=== PATIENT | male | born 1995 | race Caucasian/White ===

== ENCOUNTER 2021-08-01 16:24 | Observation (INO) ==
[2021-08-01 16:54] LABS: Hematocrit (blood only) 37.5 % (42-52); Hemoglobin 12.9 g/dL (14.0-18.0); Mean Corpuscular Hemoglobin 30.8 pg (25-34); Mean Corpuscular Hgb Conc 34.4 g/dL (32-36); Mean Corpuscular Volume 89.5 fL (80-100); Mean Platelet Volume 8.8 fL (7.4-10.4); Platelet Count 282 K/uL (130-400); RDW Coefficient of Variation 11.8 % (11.5-14.5); RDW Standard Deviation 38.4 fL (36.4-46.3); Red Blood Count 4.19 M/uL (4.7-6.1); White Blood Count 7.02 K/uL (4.8-10.8)
--- NOTE | 2021-08-01 17:11 | XRay Report ---
XR chest 1V portable CLINICAL HISTORY: Respiratory distress. COMPARISON STUDY: No previous studies for comparison. FINDINGS: Lung volumes are normal. Lungs are clear. There is no pneumothorax or pleural effusion. Car diac size is normal. Mediastinal contours are normal. There is no evidence for pulmonary edema. IMPRESSION: No acute cardiopulmonary findings. ACT 112: Negative or not required by law. Electronically signed by: Jose Rivera M.D. 08/01/2021 5:10 PM
[2021-08-01 17:13] LABS: Basophils # (auto) 0.02 K/uL (0-0.2); Basophils % (auto) 0.3 %; Eosinophils # (auto) 0.17 K/uL (0-0.5); Eosinophils % (auto) 2.4 %; Immature Granulocytes # (auto) 0.01 K/uL (0.00-0.02); Immature Granulocytes % (auto) 0.1 %; Lymphocytes # (auto) 2.16 K/uL (1.2-3.4); Lymphocytes % (auto) 30.8 %; Monocytes # (auto) 0.57 K/uL (0.11-0.59); Monocytes % (auto) 8.1 %; Neutrophils # (auto) 4.09 K/uL (1.4-6.5); Neutrophils % (auto) 58.3 %
[2021-08-01] MEDS ORDERED: KETOROLAC TROMETHAMINE 15 MG/ML VIAL IV ONE (17:15)
[2021-08-01] MEDS ORDERED: SODIUM CHLORIDE 0.9% 1000ML 1,000 ML IV ONE (17:15)
[2021-08-01 17:18] LABS: Alanine Aminotransferase 51 U/L (7-52); Albumin Level 4.8 gm/dl (3.4-5.0); Alkaline Phosphatase 48 U/L (34-104); Anion Gap 10 (3-11); Aspartate Aminotransferase 30 U/L (13-39); BUN Creatinine Ratio 24.3 (10-20); Bilirubin Direct 0.1 mg/dl (0-0.2); Bilirubin,Total 0.7 mg/dl (0.2-1.0); Blood Urea Nitrogen 18 mg/dl (6-23); Calcium 10.1 mg/dl (8.5-10.1); Carbon Dioxide 24 mmol/L (21-32); Chloride 103 mmol/L (98-107); Creatinine Clr Calc Pharmacy 147.1 ml/min; Est GFR (African American) 148.6 ml/min; Est GFR (Non-African American) 128.2 ml/min; Glucose 92 mg/dl (70-99(Fasting)); Potassium 3.7 mmol/L (3.5-5.1); Sodium 137 mmol/L (136-145); Total Protein 7.7 gm/dl (6.0-8.3)
--- NOTE | 2021-08-01 17:20 | Emergency Department Note ---
Impression & Plan Pulmonary embolism, Chest pain ED Provider Note NAME: MAGDIEL GARCIA AGE: 26 SEX: M : 1995 ARRIVES VIA: Walk-In INFORMANT: Patient ED PROVIDER(S): Denton Mayers DO CHIEF COMPLAINT: chest pain HPI: Patient is a 26-year-old who presents the ER status post trip to [facility]. Patient presents for intermittent chest pain. This has been present daily and she initially thought it was secondary to anxiety. She called [facility] today and they referred her in as they are concerned for possible PE. She does take estrogen and with a recent car trip. She denies any history of cancer, hemoptysis, previous clotting disorders or smoking. Patient is a transgender male to female. Patient denies diabetes, hypertension, hyperlipidemia, CAD, history of sudden at a young age, and smoking. Pain currently is a 1 out of 10. It is never present with waking up in the morning or when going to bed. Is present throughout the remainder of the day and mainly constant but does wax and wane slightly. Currently a 1 out of 10 and dull ache midsternal. No radiation. No shortness of breath. No arm or jaw pain. No calf swelling ROS: See above HPI for pertinent positives & negatives. A total of 10 systems reviewed and were otherwise negative. PAST MEDICAL HISTORY:See Below PAST SURGICAL HISTORY:See Below FAMILY HISTORY:See Below SOCIAL HISTORY:See Below HOME MEDICATIONS:See Below ALLERGIES:See Below VITALS:See Below PHYSICAL EXAMINATION: GENERAL: Sitting up in bed, alert, well appearing, well nourished, no distress, non-toxic EYE EXAM: normal conjunctiva. OROPHARYNX: mucous membranes are moist LUNGS: Clear to auscultation. Normal chest wall mechanics HEART: Tachycardic, S1 normal and S2 normal ABDOMEN: abdomen soft, non-tender, normo-active bowel sounds, no masses, no rebound or guarding. UPPER EXTREMITIES: upper extremities are grossly normal. LOWER EXTREMITIES: No pitting edema. Calves are equal bilateral NEURO EXAM: Normal sensorium, cranial nerves II-XII grossly intact, normal speech, no gross weakness of arms, no gross weakness of legs MEDICAL DECISION MAKING: Patient is a 26-year-old male transitioning to female on estrogen who recently just got back from a 3-hour car trip on Wednesday. Presents to the ER for intermittent chest pain. No calf pain. Not exertional. IV was established blood work is obtained. Labs show no significant leukocytosis or anemia. D- dimer was elevated at 520. BMP with LFTs bilirubin and troponin was negative. EKG was nondiagnostic but did show a sinus tachycardia. Patient was persistently tachycardic from the 110s to the 120s. Ultrasound/duplex of lower extremities was negative. Patient even after a liter of IV fluids still persistently tachycardic with a heart rate of 120. Patient was placed on heparin drip and bolus. Denies any brain bleeds, recent surgery, coughing up blood, vomiting blood, urinating blood or dark/black stools. With the pe rsistent tachycardia I felt observation was warranted especially with taking estrogen and currently at school with no close follow-up. Discussed with the hospitalist Dr. Love for further evaluation Triage Nursing notes reviewed. Limited review of prior medical records performed Vital Signs: reviewed and remarkable for HTN Differential diagnosis: Differential diagnoses includes but is not limited to acute coronary syndrome, myocardial infarction, pericarditis, pulmonary embolus, aortic dissection, pneumonia, pneumothorax, musculoskeletal, shingles, esophageal. ER treatment provided: See below Diagnostics interpreted by me: ECG: Sinus tachycardia rate of 109 Normal axis No PVCs QTC 465 Incomplete right bundle Cardiac Monitoring: An order was placed for continuous cardiac monitoring. The monitor shows a rate of 98 with sinus rhythm. Laboratory studies: As stated above and show below. Imaging studies: CT angio shows a subsegmental PE Consultation(s): Discussed with Scar Montoya for further evaluation of PEs with tachycardia Procedures: none Critical Care: I have personally spent 32 minutes of critical care time in the direct management of this patient. This includes bedside care, interpretation of diagnostic studies, and testing, discussion with consultants, patient, and family members, and other required patient management activities. This 32 minutes is in excess of all separately billable procedures. Past Med/Surg History Social History Smoking Status: Never smoker Preferred Language: Monegasque Feels Safe at Home: Yes Allergies Allergies Allergy/AdvReac Type Severity Reaction Status Date / Time No Known Allergies Allergy Unverified 08/01/21 17:43 Home Meds Home Medications Medication Instructions Recorded Confirmed aspirin 81 mg tablet,delayed 81 mg PO QAM 08/01/21 08/01/21 release bicalutamide 50 mg tablet 50 mg PO QAM 08/01/21 08/01/21 estradiol 0.1 mg/24 hr semiweekly 1 patch TRANSDERMAL 2XWK 08/01/21 08/01/21 transdermal patch estradiol 2 mg tablet 2 mg PO TID 08/01/21 08/01/21 Results & Data (ED) Vital Signs Vital Signs - 24 hr 08/01/21 16:30 08/01/21 18:26 Temperature 36.8 C Temperature Source Temporal Artery Scan Pulse Rate 99 H Pulse Rate [Apical] 116 H Respiratory Rate 18 18 Blood Pressure 143/86 H Blood Pressure [Right Arm] 141/84 H Blood Pressure Mean 105 Blood Pressure Mean [Right Arm] 103 Pulse Oximetry 97 97 Oxygen Delivery Method Room Air Room Air Sepsis Recent Fever Within 48 Hours No Sepsis New/Unexplained Change in Mental Status No Sepsis Action Taken by Nursing No Action Required Laboratory Data Result diagrams: 08/01/21 16:43 08/01/21 16:43 Lab Results 08/01/21 08/01/21 08/01/21 Range/Units 16:43 16:43 16:43 WBC 7.02 (4.8-10.8) K/uL RBC 4.19 L (4.7-6.1) M/uL Hgb 12.9 L (14.0-18.0) g/dL Hct 37.5 L (42-52) % MCV 89.5 (80-100) fL MCH 30.8 (25-34) pg MCHC 34.4 (32-36) g/dL RDW Std Deviation 38.4 (36.4-46.3) fL RDW Coeff of Nicanor 11.8 (11.5-14.5) % Plt Count 282 (130-400) K/uL MPV 8.8 (7.4-10.4) fL Immature Gran % (Auto) 0.1 % Neut % (Auto) 58.3 % Lymph % (Auto) 30.8 % Clinch % (Auto) 8.1 % Eos % (Auto) 2.4 % Baso % (Auto) 0.3 % Neut # (Auto) 4.09 (1.4-6.5) K/uL Lymph # (Auto) 2.16 (1.2-3.4) K/uL Clinch # (Auto) 0.57 (0.11-0.59) K/uL Eos # (Auto) 0.17 (0-0.5) K/uL Baso # (Auto) 0.02 (0-0.2) K/uL Immature Gran # (Auto) 0.01 (0.00-0.02) K/uL D-Dimer 520 H* (0-500) ug/L FEU Sodium 137 (136-145) mmol/L Potassium 3.7 (3.5-5.1) mmol/L Chloride 103 (98-107) mmol/L Carbon Dioxide 24 (21-32) mmol/L Anion Gap 10 (3-11) BUN 18 (6-23) mg/dl Creatinine 0.74 (0.6-1.4) mg/dl Est Cr Clr Drug Dosing 147.1 ml/min Est GFR ( Amer) 148.6 ml/min Est GFR (Non-Af Amer) 128.2 ml/min BUN/Creatinine Ratio 24.3 H (10-20) Glucose 92 (70-99(Fasting)) mg/dl Calcium 10.1 (8.5-10.1) mg/dl Total Bilirubin 0.7 (0.2-1.0) mg/dl Direct Bilirubin 0.1 (0-0.2) mg/dl AST 30 (13-39) U/L ALT 51 (7-52) U/L Alkaline Phosphatase 48 (34-104) U/L Troponin I High Sens < 2.3 (0-20) pg/ml Total Protein 7.7 (6.0-8.3) gm/dl Albumin 4.8 (3.4-5.0) gm/dl 08/01/21 Range/Units 16:43 WBC (4.8-10.8) K/uL RBC (4.7-6.1) M/uL Hgb (14.0-18.0) g/dL Hct (42-52) % MCV (80-100) fL MCH (25-34) pg MCHC (32-36) g/dL RDW Std Deviation (36.4-46.3) fL RDW Coeff of Nicanor (11.5-14.5) % Plt Count (130-400) K/uL MPV (7.4-10.4) fL Immature Gran % (Auto) % Neut % (Auto) % Lymph % (Auto) % Clinch % (Auto) % Eos % (Auto) % Baso % (Auto) % Neut # (Auto) (1.4-6.5) K/uL Lymph # (Auto) (1.2-3.4) K/uL Clinch # (Auto) (0.11-0.59) K/uL Eos # (Auto) (0-0.5) K/uL Baso # (Auto) (0-0.2) K/uL Immature Gran # (Auto) (0.00-0.02) K/uL D-Dimer (0-500) ug/L FEU Sodium (136-145) mmol/L Potassium (3.5-5.1) mmol/L Chloride (98-107) mmol/L Carbon Dioxide (21-32) mmol/L Anion Gap (3-11) BUN (6-23) mg/dl Creatinine (0.6-1.4) mg/dl Est Cr Clr Drug Dosing ml/min Est GFR ( Amer) ml/min Est GFR (Non-Af Amer) ml/min BUN/Creatinine Ratio (10-20) Glucose (70-99(Fasting)) mg/dl Calcium (8.5-10.1) mg/dl Total Bilirubin Cancelled (0.2-1.0) mg/dl Direct Bilirubin Cancelled (0-0.2) mg/dl AST Cancelled (13-39) U/L ALT Cancelled (7-52) U/L Alkaline Phosphatase Cancelled (34-104) U/L Troponin I High Sens (0-20) pg/ml Total Protein Cancelled (6.0-8.3) gm/dl Albumin Cancelled (3.4-5.0) gm/dl Administered Medications Discontinued Medications Sodium Chloride (Nss 1000ml) 1,000 mls @ 999 mls/hr IV .Q1H1M ONE Stop: 08/01/21 18:15 Last Admin: 08/01/21 18:24 Dose: 999 mls/hr Documented by: [id number] Ioversol (Optiray 320 125ml) 117 ml IV ONCE ONE Stop: 08/01/21 18:07 Last Admin: 08/01/21 18:06 Dose: 117 ml Documented by: [id number] Ketorolac Tromethamine (Ketorolac Tromethamine 15 Mg/Ml Vial) 15 mg IV NOW ONE Stop: 08/01/21 17:16 Last Admin: 08/01/21 18:24 Dose: 15 mg Documented by: [id number] Imaging Data Radiologist's Impression: Chest X-Ray 08/01/21 16:33 XR chest 1V portable CLINICAL HISTORY: Respiratory distress. COMPARISON STUDY: No previous studies for comparison. FINDINGS: Lung volumes are normal. Lungs are clear. There is no pneumothorax or pleural effusion. Cardiac size is normal. Mediastinal contours are normal. There is no evidence for pulmonary edema. IMPRESSION: No acute cardiopulmonary findings. ACT 112: Negative or not required by law. Electronically signed by: Jose Rivera M.D. 08/01/2021 5:10 PM Chest CTA 08/01/21 17:39 CT ANGIOGRAPHY OF THE CHEST, PULMONARY EMBOLUS PROTOCOL CLINICAL HISTORY: Chest pain. Elevated d-dimer. Recent travel COMPARISON STUDY: Chest radiograph performed earlier today. TECHNIQUE: Following IV administration of 117 mL of Optiray, helical axial images of the chest were obtained utilizing the pulmonary embolus protocol. Maximal intensity projections and sagittal and coronal reformats were viewed on an independent 3D workstation. IV contrast was administered without complication. Automated exposure control was utilized for the study. A dose lowering technique was utilized adhering to the principles of ALARA. CT DOSE: 475.21 mGy.cm FINDINGS: There is a small subsegmental pulmonary embolus within the posterior basal segment of the right lower lobe shown on axial image 83 of 318. No additional pulmonary emboli are identified. There is no thoracic aortic dissection. Size of the heart is normal. No enlarged thoracic lymph nodes are present. There is no pulmonary infarct. Lungs are clear. No pneumothorax or pleural effusion is present. Visualized portions of the bony thorax and upper abdomen are unremarkable. There is bilateral gynecomastia. IMPRESSION: Small subsegmental pulmonary embolus within the posterior basal segment of the right lower lobe. ACT 112: Negative or not required by law. Electronically signed by: Jose Rivera M.D. 08/01/2021 6:22 PM Venous Doppler Study 08/01/21 18:26 BILATERAL LOWER EXTREMITY VENOUS DOPPLER CLINICAL HISTORY: Pulmonary embolus. COMPARISON STUDY: No previous studies for comparison. TECHNIQUE: Sonography of the deep venous system of the bilateral lower extremities was performed. Compression and augmentation were evaluated. FINDINGS: The bilateral common femoral, superficial femoral and popliteal veins were compressible. Augmentation was normal. Flow was shown within the deep calf vessels. IMPRESSION: No evidence of deep venous thrombus within the bilateral lower extremities. ACT 112: Negative or not required by law. Electronically signed by: Jose Rivera M.D. 08/01/2021 7:08 PM Discharge Plan Visit Data Chief Complaint: Referred by Doctor Stated Complaint: [place], SENT BY EMERGENCY HOTLINE ED Provider: Denton Mayers Discharge Problem: Pulmonary embolism, Chest pain Forms Stand Alone Forms: My [facility] InboundWriter Prescriptions Prescriptions: No Action bicalutamide 50 mg tablet 50 mg PO QAM RF: 0 estradiol 0.1 mg/24 hr patch semiweekly 1 patch transdermal 2XWK RF: 0 aspirin 81 mg tablet,delayed release (DR/EC) 81 mg PO QAM RF: 0 estradiol 2 mg tablet 2 mg PO TID RF: 0 Referrals Referrals: PCP,NO [Physician] - Discharge Problem: Pulmonary embolism Qualifiers: Pulmonary embolism type: unspecified Chronicity: unspecified Acute cor pulmonale presence: unspecified Qualified Code(s): I26.99 - Other pulmonary embolism without acute cor pulmonale Chest pain Qualifiers: Chest pain type: unspecified Qualified Code(s): R07.9 - Chest pain, unspecified
[2021-08-01 17:22] LABS: Troponin I High Sensitivity < 2.3 pg/ml (0-20)
[2021-08-01 17:37] LABS: D Dimer 520 ug/L FEU (0-500)
[2021-08-01] MEDS ORDERED: OPTIRAY 320 125ml IV ONE (18:06)
--- NOTE | 2021-08-01 18:25 | CT Scan Report ---
CT ANGIOGRAPHY OF THE CHEST, PULMONARY EMBOLUS PROTOCOL CLINICAL HISTORY: Chest pain. Elevated d-dimer. Recent travel COMPARISON STUDY: Chest radiograph performed earlier today. TECHNIQUE: Following IV administration of 117 mL of Optiray, helical axial images of the chest were o btained utilizing the pulmonary embolus protocol. Maximal intensity projections and sagittal and cor onal reformats were viewed on an independent 3D workstation. IV contrast was administered without co mplication. Automated exposure control was utilized for the study. A dose lowering technique was ut ilized adhering to the principles of ALARA. CT DOSE: 475.21 mGy.cm FINDINGS: There is a small subsegmental pulmonary embolus within the posterior basal segment of the right lower lobe shown on axial image 83 of 318. No additional pulmonary emboli are identified. There is no thoracic aortic dissection. Size of the heart is normal. No enlarged thoracic lymph nodes are present. There is no pulmonary infarct. Lungs are clear. No pneumothorax or pleural effusion is prese nt. Visualized portions of the bony thorax and upper abdomen are unremarkable. There is bilateral bottom worker ecomastia. IMPRESSION: Small subsegmental pulmonary embolus within the posterior basal segment of the right low er lobe. ACT 112: Negative or not required by law. Electronically signed by: Jose Rivera M.D. 08/01/2021 6:22 PM
--- NOTE | 2021-08-01 19:10 | Ultrasound Report ---
BILATERAL LOWER EXTREMITY VENOUS DOPPLER CLINICAL HISTORY: Pulmonary embolus. COMPARISON STUDY: No previous studies for comparison. TECHNIQUE: Sonography of the deep venous system of the bilateral lower extremities was performed. Co mpression and augmentation were evaluated. FINDINGS: The bilateral common femoral, superficial femoral and popliteal veins were compressible. A ugmentation was normal. Flow was shown within the deep calf vessels. IMPRESSION: No evidence of deep venous thrombus within the bilateral lower extremities. ACT 112: Negative or not required by law. Electronically signed by: Jose Rivera M.D. 08/01/2021 7:08 PM
[2021-08-01] MEDS ORDERED: Heparin IV Adult Wt-Based Standard WITH Bolus Protocol IV STA (19:17)
[2021-08-01] MEDS ORDERED: SODIUM CHLORIDE 0.9% 500 ML IV ONE (19:17)
[2021-08-01] MEDS ORDERED: HEPARIN SOD (PORCINE) 1000 UNIT/ML IV ONE (19:32)
[2021-08-01] MEDS ORDERED: HEPARIN SODIUM/DEXTROSE 25,000 UNITS/500 ML BAG IV SCH (19:45)
--- NOTE | 2021-08-01 19:48 | History & Physical Report ---
Date of Service August 01, 2021 Assessment & Plan (1) Pulmonary embolism: Plan: - small subsegmental PE after recent travel from [facility], on hormone therapy, these likely caused the PE. will also order hypercoagulability work up to r/o additional predisposing factors. - heparin drip with bolus started in ED, will continue. suspect she will be dischaged tomorrow pending no acute events overnight, can look into options for short term anticoagulation/consider switching estrogen delivery route if felt unsafe to continue on oral estrogen therapy. - has been persistently tachycardic in ED despite IVF, but initial trop < 2.3, no cardiomegaly or pericardial effusion, no suspicion for tachycardia induced cardiomyopathy at this point. - continue to monitor HR on monitor overnight. (2) Tachycardia: (3) Nzad-ey-vaoknd transgender person: Plan: - on estradiol patch 2x/week (Wednesday and ) po estradiol 2mg TID, casodex 50mg daily. treatment is managed by Drs. [facility], based in [place]. - preferred name is Leelee, pronouns she/her/hers. Plan: - med/tele for observation overnight. - SCDs, on heparin drip. - full code. History of Present Illness Chief Complaint: chest pain Primary Care Provider: [facility] Leelee is a 26-year-old otherwise healthy female (transitioning M to F) currently on estrogen therapy who presents today with onset of chest pain. She returned home from a trip from [facility] on Wednesday, and noticed later that evening that she had some mild central chest pain. She originally thought this was due to anxiety, or perhaps sleeping poorly. However,over the rest of the week, she has continued to experience episodic central chest pain. at its worst, is a 3/10 and does not laqst for very long. Onset both with and without activity. She called [facility] today, they felt given her recent travel and estrogen therapy, she should present to the emergency department for further evaluation. Chest pain does not radiate anywhere, she is not having any difficulty breathing, no shortness of breath, or palpitations. She has never had a blood clot, denies any family history of such. Reports a family history of heart disease, but no known clotting disorders or other blood disorder. In ED, she was tachycardic HR 110-120s, hypertensive with SBP 140s, VS stable and otherwise wnl. Labs largely unremarkable, d dimer 520, chest CTA with small subsegemental PE within the posterior basal segment of the right lower lobe. hsTroponin < 2.3. CXR unremarkable, b/l dopplers without evidence of DVT. Allergies Allergy/AdvReac Type Severity Reaction Status Date / Time No Known Allergies Allergy Unverified 08/01/21 17:43 Home Medications Medication Instructions Recorded Confirmed Type aspirin 81 mg tablet,delayed 81 mg PO QAM 08/01/21 08/01/21 History release bicalutamide 50 mg tablet 50 mg PO QAM 08/01/21 08/01/21 History estradiol 0.1 mg/24 hr semiweekly 1 patch TRANSDERMAL 2XWK 08/01/21 08/01/21 History transdermal patch estradiol 2 mg tablet 2 mg PO TID 08/01/21 08/01/21 History Eliquis 5 mg tablet (apixaban) 5 mg PO BID 30 Days #67 tab NS 08/02/21 Rx Past Med/Surg History Medical History (Updated 08/01/21 @ 21:36 by Avril Zarco PA-C) Pulmonary embolism Family History (Updated 08/01/21 @ 21:00 by Avril Zarco PA-C) Other Heart disease Denies family history of Sudden Deep vein thrombosis Clotting disorder Pulmonary embolism Social History Smoking Status: Never smoker Second Hand Exposure: No; Do You Dip or Chew Tobacco: No; Tobacco Cessation Education Requested by Patient: No Hx Alcohol Use: Yes Alcohol type: other Hx Substance Use: No Preferred Language: Citizen Of [place] Communication Ability: Effective Valve Mechanic Required: No Beliefs That Will Affect Care: None Current Living Situation: Other Current Living Situation Comment: had 2 roommates Other Information That Helps Us Care for You: No Feels Safe at Home: Yes Safety Concerns: Feels Safe At This Time Assistive Devices: None Review of Systems Review of Systems: Constitutional: No fever/chills, weakness, fatigue, myalgias, anorexia, night sweats Eyes: No diplopia, no worsening or blurred vision ENT: normal hearing, no trouble swallowing Respiratory: No cough, sputum, dyspnea at rest or on exertion Cardiovascular: central chest pain without tightness or palpitations Abdomen: No pain, nausea, vomiting, diarrhea or constipation : Denies dysuria, hematuria, increased urgency/frequency, urinary retention Musculoskeletal: No joint pain, calf pain, swelling Neurologic: No weakness, numbness/tingling, or balance problems Psychiatric: No anxiety or depression Skin: No rash or itch Physical Exam Physical Exam: General: awake, alert, no apparent distress Head: Normocephalic, atraumatic ENT: PERRL, EOMI, no pharyngeal exudate, mucous membranes moist Chest: Clear to auscultation, on room air, no adventitious breath sounds Cardiac: Regular rate and rhythm, no murmur, no JVD, normal peripheral pulses, good capillary refill Abdominal: NABS x 4 quadrants, soft, nontender to palpation, no rebound, gu arding or tenderness Extremities: Normal inspection, no peripheral edema or erythema, calfs nontender to palpation Psych: Normal mood and affect Neuro: AAO x 3, strength intact bilaterally and rated 5/5, no motor deficits, speech is clear, no peripheral sensory deficits Skin: no rash or erythema Results & Data Results & Data ([facility]) Vital Signs (Past 12 Hours) Vital Signs Temp Pulse Pulse Resp BP BP Pulse Ox 08/01/21 18:26 116 H 18 141/84 H 97 08/01/21 16:30 36.8 C 99 H 18 143/86 H 97 Laboratory Results Abnormal lab results 08/01/21 08/01/21 08/01/21 Range/Units 16:43 16:43 16:43 RBC 4.19 L (4.7-6.1) M/uL Hgb 12.9 L (14.0-18.0) g/dL Hct 37.5 L (42-52) % D-Dimer 520 H* (0-500) ug/L FEU BUN/Creatinine Ratio 24.3 H (10-20) Diagnostic Findings Chest X-Ray 08/01/21 16:33 XR chest 1V portable CLINICAL HISTORY: Respiratory distress. COMPARISON STUDY: No previous studies for comparison. FINDINGS: Lung volumes are normal. Lungs are clear. There is no pneumothorax or pleural effusion. Cardiac size is normal. Mediastinal contours are normal. There is no evidence for pulmonary edema. IMPRESSION: No acute cardiopulmonary findings. ACT 112: Negative or not required by law. Electronically signed by: Jose Rivera M.D. 08/01/2021 5:10 PM Chest CTA 08/01/21 17:39 CT ANGIOGRAPHY OF THE CHEST, PULMONARY EMBOLUS PROTOCOL CLINICAL HISTORY: Chest pain. Elevated d-dimer. Recent travel COMPARISON STUDY: Chest radiograph performed earlier today. TECHNIQUE: Following IV administration of 117 mL of Optiray, helical axial images of the chest were obtained utilizing the pulmonary embolus protocol. Maximal intensity projections and sagittal and coronal reformats were viewed on an independent 3D workstation. IV contrast was administered without complication. Automated exposure control was utilized for the study. A dose lowering technique was utilized adhering to the principles of ALARA. CT DOSE: 475.21 mGy.cm FINDINGS: There is a small subsegmental pulmonary embolus within the posterior basal segment of the right lower lobe shown on axial image 83 of 318. No additional pulmonary emboli are identified. There is no thoracic aortic dissection. Size of the heart is normal. No enlarged thoracic lymph nodes are present. There is no pulmonary infarct. Lungs are clear. No pneumothorax or pleural effusion is present. Visualized portions of the bony thorax and upper abdomen are unremarkable. There is bilateral gynecomastia. IMPRESSION: Small subsegmental pulmonary embolus within the posterior basal segment of the right lower lobe. ACT 112: Negative or not required by law. Electronically signed by: Jose Rivera M.D. 08/01/2021 6:22 PM Venous Doppler Study 08/01/21 18:26 BILATERAL LOWER EXTREMITY VENOUS DOPPLER CLINICAL HISTORY: Pulmonary embolus. COMPARISON STUDY: No previous studies for comparison. TECHNIQUE: Sonography of the deep venous system of the bilateral lower extremities was performed. Compression and augmentation were evaluated. FINDINGS: The bilateral common femoral, superficial femoral and popliteal veins were compressible. Augmentation was normal. Flow was shown within the deep calf vessels. IMPRESSION: No evidence of deep venous thrombus within the bilateral lower extremities. ACT 112: Negative or not required by law. Electronically signed by: Jose Rivera M.D. 08/01/2021 7:08 PM ECG Additional Comments: Sinus tachycardia Possible Left atrial enlargement Incomplete right bundle branch block Borderline ECG No previous ECGs available. Code Status & VTE Plan Code Status Full Code. VTE Prophylaxis Plan VTE Prophylaxis will be ordered: Yes Supervising Physician Co-Signing Physician Notes Attending addendum: I have physically seen this patient, have supervised the CHACORTA's activities, and agree with the H&P unless as otherwise noted. Assessment and Plan: Pulmonary embolism- Small subsegmental PE in the posterior basal segment right lower lobe Bilateral lower extremity venous Dopplers negative for DVT Continue heparin IV begun by the ED Likely etiology secondary to hormone therapy Transition to oral anticoagulation tomorrow Order hypercoagulable work-up Male to female transgender transition- Hormone therapy per Dr. [facility] in [place] Remaining orders and notations as noted PG Care Time/CCT Total # of Minutes Spent Total Time Spent with Patient: Total time spent is greater than 50% in coordination of care (as documented) at patient's floor/unit and/or counseling patient: Coding Level of Care Code INT OBSERVATION CARE 50M LVL 2 Diagnoses Pulmonary embolism I26.99 Acute cor pulmonale presence: unspecified Chronicity: unspecified Pulmonary embolism type: unspecified Inme-yg-ippxni transgender person Z78.9 Tachycardia R00.0 (1) Pulmonary embolism Acute cor pulmonale presence: unspecified Chronicity: unspecified Pulmonary embolism type: unspecified Qualified Code(s): I26.99 - Other pulmonary embolism without acute cor pulmonale
[2021-08-01] MEDS ORDERED: POLYETHYLENE (MIRALAX) 17 GM PACK PO PRN (22:40)
[2021-08-01] MEDS ORDERED: ACETAMINOPHEN 325 MG TAB PO PRN (22:40)
[2021-08-01] MEDS ORDERED: ONDANSETRON INJ 2 MG/ML 2 ML VIAL IV PRN (22:40)
[2021-08-02] MEDS: estradioL 1 MG TAB PO SCH ×3 (00:51→14:21)
[2021-08-02 05:19] LABS: Partial Thromboplastin Ratio 2.2
[2021-08-02 05:45] LABS: Partial Thromboplastin Time 59.5 Seconds (21.0-31.0)
--- NOTE | 2021-08-02 07:16 | Discharge Summary ---
Date of Service August 02, 2021 Admission HPI Per Admitting Provider Leelee is a 26-year-old otherwise healthy female (transitioning M to F) currently on estrogen therapy who presents today with onset of chest pain. She returned home from a trip from [facility] on Wednesday, and noticed later that evening that she had some mild central chest pain. She originally thought this was due to anxiety, or perhaps sleeping poorly. However,over the rest of the week, she has continued to experience episodic central chest pain. at its worst, is a 3/10 and does not laqst for very long. Onset both with and without activity. She called [facility] today, they felt given her recent travel and estrogen therapy, she should present to the emergency department for further evaluation. Chest pain does not radiate anywhere, she is not having any difficulty breathing, no shortness of breath, or palpitations. She has never had a blood clot, denies any family history of such. Reports a family history of heart disease, but no known clotting disorders or other blood disorder. In ED, she was tachycardic HR 110-120s, hypertensive with SBP 140s, VS stable and otherwise wnl. Labs largely unremarkable, d dimer 520, chest CTA with small subsegemental PE within the posterior basal segment of the right lower lobe. hsTroponin < 2.3. CXR unremarkable, b/l dopplers without evidence of DVT. Admission Exam Per Admitting Provider General: awake, alert, no apparent distress Head: Normocephalic, atraumatic ENT: PERRL, EOMI, no pharyngeal exudate, mucous membranes moist Chest: Clear to auscultation, on room air, no adventitious breath sounds Cardiac: Regular rate and rhythm, no murmur, no JVD, normal peripheral pulses, good capillary refill Abdominal: NABS x 4 quadrants, soft, nontender to palpation, no rebound, guarding or tenderness Extremities: Normal inspection, no peripheral edema or erythema, calfs nontender to palpation Psych: Normal mood and affect Neuro: AAO x 3, strength intact bilaterally and rated 5/5, no motor deficits, speech is clear, no peripheral sensory deficits Skin: no rash or erythema Principal Diagnosis subsegmental pulmonary embolism Discharge Exam General: Grossly A&O. NAD. Cooperative. HEENT: Atraumatic, normocephalic. EOMI Pulm: CTAB. -wheezes, -rales, -rhonchi. Symmetrical chest rise. No respiratory distress. Cardiac: RRR, -mrg. No LE edema. Abdominal: Nontender, nondistended, soft. Discharge Data Allergies Allergy/AdvReac Type Severity Reaction Status Date / Time No Known Allergies Allergy Unverified 08/01/21 17:43 Consultations 08/01/21 19:17 ED Decision to Admit Stat Ordered Studies Cardiac Enzymes 08/01/21 08/01/21 Range/Units 16:43 16:43 AST 30 Cancelled (13-39) U/L Troponin I High Sens < 2.3 (0-20) pg/ml Coagulation 08/02/21 Range/Units 04:26 APTT 59.5 H* (21.0-31.0) Seconds CBC 08/01/21 08/02/21 Range/Units 16:43 08:17 WBC 7.02 7.67 (4.8-10.8) K/uL RBC 4.19 L 4.01 L (4.7-6.1) M/uL Hgb 12.9 L 12.6 L (14.0-18.0) g/dL Hct 37.5 L 36.4 L (42-52) % Plt Count 282 288 (130-400) K/uL Neut # (Auto) 4.09 (1.4-6.5) K/uL Lymph # (Auto) 2.16 (1.2-3.4) K/uL King # (Auto) 0.57 (0.11-0.59) K/uL Eos # (Auto) 0.17 (0-0.5) K/uL Baso # (Auto) 0.02 (0-0.2) K/uL Comprehensive Metabolic Panel 08/01/21 08/01/21 08/02/21 Range/Units 16:43 16:43 08:17 Sodium 137 138 (136-145) mmol/L Potassium 3.7 3.7 (3.5-5.1) mmol/L Chloride 103 104 (98-107) mmol/L Carbon Dioxide 24 28 (21-32) mmol/L BUN 18 10 (6-23) mg/dl Creatinine 0.74 0.68 (0.6-1.4) mg/dl Glucose 92 94 (70-99(Fasting)) mg/dl Calcium 10.1 9.7 (8.5-10.1) mg/dl Direct Bilirubin 0.1 Cancelled (0-0.2) mg/dl AST 30 Cancelled (13-39) U/L ALT 51 Cancelled (7-52) U/L Alkaline Phosphatase 48 Cancelled (34-104) U/L Total Protein 7.7 Cancelled (6.0-8.3) gm/dl Albumin 4.8 Cancelled (3.4-5.0) gm/dl Intake and Output 08/01/21 08/02/21 08/02/21 22:59 06:59 14:59 Intake Total 1500 / 1900 400 / 1900 228.75 / 228.75 Balance 1500 / 1900 400 / 1900 228.75 / 228.75 Intake: IV 1500 / 1500 228.75 / 228.75 Heparin Sodium/Dextrose 25,000 228.75 / 228.75 units In 500 ml @ 1,250 UNITS/ HR 25 mls/hr IV .Q20H DEBBY Rx#: [id number] Sodium Chloride 0.9% 1000ML 1, 1000 / 1000 000 ml @ 999 mls/hr IV .Q1H1M ONE Rx#:[id number] Sodium Chloride 0.9% 500 ml @ 500 / 500 999 mls/hr IV .Q31M ONE Rx#: [id number] Oral 400 / 400 Other: # Unmeasured Voids 4 Weight 78.1 kg 76.8 kg Weight Measurement Method Chair Scale Standing Scale Chest X-Ray 08/01/21 16:33 XR chest 1V portable CLINICAL HISTORY: Respiratory distress. COMPARISON STUDY: No previous studies for comparison. FINDINGS: Lung volumes are normal. Lungs are clear. There is no pneumothorax or pleural effusion. Cardiac size is normal. Mediastinal contours are normal. There is no evidence for pulmonary edema. IMPRESSION: No acute cardiopulmonary findings. ACT 112: Negative or not required by law. Electronically signed by: Jose Rivera M.D. 08/01/2021 5:10 PM Chest CTA 08/01/21 17:39 CT ANGIOGRAPHY OF THE CHEST, PULMONARY EMBOLUS PROTOCOL CLINICAL HISTORY: Chest pain. Elevated d-dimer. Recent travel COMPARISON STUDY: Chest radiograph performed earlier today. TECHNIQUE: Following IV administration of 117 mL of Optiray, helical axial images of the chest were obtained utilizing the pulmonary embolus protocol. Maximal intensity projections and sagittal and coronal reformats were viewed on an independent 3D workstation. IV contrast was administered without complication. Automated exposure control was utilized for the study. A dose lowering technique was utilized adhering to the principles of ALARA. CT DOSE: 475.21 mGy.cm FINDINGS: There is a small subsegmental pulmonary embolus within the posterior basal segment of the right lower lobe shown on axial image 83 of 318. No additional pulmonary emboli are identified. There is no thoracic aortic dissection. Size of the heart is normal. No enlarged thoracic lymph nodes are present. There is no pulmonary infarct. Lungs are clear. No pneumothorax or pleural effusion is present. Visualized portions of the bony thorax and upper abdomen are unremarkable. There is bilateral gynecomastia. IMPRESSION: Small subsegmental pulmonary embolus within the posterior basal segment of the right lower lobe. ACT 112: Negative or not required by law. Electronically signed by: Jose Rievra M.D. 08/01/2021 6:22 PM Venous Doppler Study 08/01/21 18:26 BILATERAL LOWER EXTREMITY VENOUS DOPPLER CLINICAL HISTORY: Pulmonary embolus. COMPARISON STUDY: No previous studies for comparison. TECHNIQUE: Sonography of the deep venous system of the bilateral lower extremities was performed. Compression and augmentation were evaluated. FINDINGS: The bilateral common femoral, superficial femoral and popliteal veins were compressible. Augmentation was normal. Flow was shown within the deep calf vessels. IMPRESSION: No evidence of deep venous thrombus within the bilateral lower extremities. ACT 112: Negative or not required by law. Electronically signed by: Jose Rivera M.D. 08/01/2021 7:08 PM ecg Vent. Rate : 109 BPM Atrial Rate : 109 BPM P-R Int : 154 ms QRS Dur : 092 ms QT Int : 346 ms P-R-T Axes : 062 046 061 degrees QTc Int : 465 ms Sinus tachycardia Incomplete right bundle branch block Normal ECG No previous ECGs available Confirmed by Rizwan Mary ([id number]) on 08/02/2021 9:14:55 AM Hospital Course (1) Pulmonary embolism: 26 y/o M->F transgender on estrogen therapy who presented w/ small subsegmental PE after recent travel, provoked. - hypercoagulability workup pending - heparin drip with bolus started in hospital, transitioned to Eliquis (10mg BID x first week, followed by 5mg BID after). probably will need ~3 months full dosing, then can consider reduced dosing - but with estrogen Rx ongoing will likely need anticoagulation ongoing at some degree indefinitely as well - tachycardia resolved; patient remained hemodynamically stable (2) Tachycardia: - reolved (3) Oazh-vq-xykumu transgender person: - on estradiol patch 2x/week (Wednesday and ) po estradiol 2mg TID, casodex 50mg daily. treatment is managed by Drs. [facility], based in [place]. - preferred name is Leelee, pronouns she/her/hers. Patient was full code this admission. Total Time Total Time Spent Total Time Spent (In Minutes): >30 Discharge Plan Discharge Items Patient Disposition: Home - Self-Care Reason For Visit: SUBSEGMENTAL PE, ON ESTROGEN THERAPY Discharge Diagnosis: subsegmental pulmonary embolism Activity: Per Instructions section Non-emergency contact: Primary Care Provider Call non-emergency contact if: you have any medication questions, your symptoms worsen and you have a fever Follow-up/Referrals: [facility] [Primary Care Provider] - (hospital discharge follow up within 1 week) Diet: Regular Addtl Attending Provider Instructions: You were admitted to [facility] for a small blood clot in your right lung. You were treated with IV blood thinner while in the hospital and will be transitioned to an oral blood thinner. Ultrasound did not show clots in your legs. Your estrogen regimen will be continued. Please follow up with your outpatient prescriber to discuss if any adjustments are needed. Your liver enzymes were normal during this admission. blood thinner: Eliquis 10mg twice a day for 1 week (take first dose late afternoon 08/02/21 and next dose morning of 08/03/21). After the first week, 5mg twice a day. The prescription has been sent to [facility] Brenda Beckman. You will likely take this for a minimum of 6 months vs. indefinitely because of increased clot risk while on estrogen therapy. Your outpatient provider will determine this. If need additional refills of the Eliquis, contact PCP. 3 refills have been sent. Please contact your PCP if you have any new symptoms such as chest pain or shortness of breath. Stop the Eliquis and contact PCP if you notice any signs of bleeding such as black or bloody stool. Visit the ED if concerning symptoms. Pending Studies at Discharge: Yes Studies:: hypercoagulable workup Stand-Alone Forms: My [facility], Smoking Cessation Medications and DC Order Prescriptions: New Eliquis 5 mg tablet 5 mg PO BID 30 Days Qty: 67 RF: 3 Continued bicalutamide 50 mg tablet 50 mg PO QAM RF: 0 estradiol 0.1 mg/24 hr patch semiweekly 1 patch transdermal 2XWK RF: 0 aspirin 81 mg tablet,delayed release (DR/EC) 81 mg PO QAM RF: 0 estradiol 2 mg tablet 2 mg PO TID RF: 0 Discharge Orders: Discharge Order (Routine); Ordered 08/02/21 Ordered By: Romeo Arcos Admission Data Admit Date/Time: 08/01/21 20:00 Attending Provider: Denton Augustin Admit Provider: Scar Montoya Primary Care Provider: [facility] Other Providers: Scar Montoya Other Interventions: Discharge Summary Assessment (RN) Last Done: 08/02/21 14:35 Supervising Physician Co-Signing Physician Notes I personally examined the patient and verified all rodriugez points of history and exam, discussed case, and agree with decision making with Dr Arcos feeling OK feels up to going home. extensive discussions on PE, treatment, anticoagulation, role of estrogen in clotting and possible strategies to consider with her unique situation vitals noted nad heent nc at mmm breathing unlabored no accessory muscles good effort skin no rashes no pallor or icterus PE - improved. stable for home. discussed that with risks being estrogen + travel, most recent guidelines would suggest that her major risk for VTE (estrogen) still being present would therefore necessitate open ended anticoagulation (almost miguel ángel to if she had V Leiden, etc) - discussed 1 and 5 year recurrence as well as CHEST and AC Forum guidelines that unless major reversible provoking factors - some degree of anticoagulation should be indefinite, but also that after ~3 months at full dosing, reduction to prophylactic dosing could be considered. discussed estrogen - she wondered if there would be utility in changing types/formulations/route/etc -- i discussed that as it relates to HRT/etc i would be far out of my area of expertise, but that to my knowledge most (if not all) estrogen therapy does increase risk for VTE. would have her discuss with her HRT doc, but rec'd that unless there is some type of HRT that truly comes with essentially 0% VTE risk it would make the most sense to continue w HRT that seems to be working, and modify anticoagulation based on risk engendered by HRT (ie ?does she stay on full dosing, is it safe to reduce to partial dosing, etc - based on VTE risk from HRT) - discussed this would be best done as an ongoing discussion from HRT doc as well as family doc (HRT doc knowing hormonal Rx best, PCP knowing VTE treatme nt best). appreciated discussion, answered all questions to the best of my ability. safe/stable for home Resident Activity Tracking Resident Involvement: Resident Care Provided Care Provided: Adult Hospital Medicine
[2021-08-02 08:35] LABS: Hematocrit (blood only) 36.4 % (42-52); Hemoglobin 12.6 g/dL (14.0-18.0); Mean Corpuscular Hemoglobin 31.4 pg (25-34); Mean Corpuscular Hgb Conc 34.6 g/dL (32-36); Mean Corpuscular Volume 90.8 fL (80-100); Mean Platelet Volume 8.8 fL (7.4-10.4); Platelet Count 288 K/uL (130-400); RDW Coefficient of Variation 11.7 % (11.5-14.5); RDW Standard Deviation 39.1 fL (36.4-46.3); Red Blood Count 4.01 M/uL (4.7-6.1); White Blood Count 7.67 K/uL (4.8-10.8)
[2021-08-02 08:46] LABS: Anion Gap 6 (3-11); BUN Creatinine Ratio 14.7 (10-20); Blood Urea Nitrogen 10 mg/dl (6-23); Calcium 9.7 mg/dl (8.5-10.1); Carbon Dioxide 28 mmol/L (21-32); Chloride 104 mmol/L (98-107); Creatinine Clr Calc Pharmacy 158.8 ml/min; Est GFR (African American) > 150.0 ml/min; Est GFR (Non-African American) 132.7 ml/min; Glucose 94 mg/dl (70-99(Fasting)); Potassium 3.7 mmol/L (3.5-5.1); Sodium 138 mmol/L (136-145)
[2021-08-02] MEDS ORDERED: ASPIRIN 81 MG ECTAB PO SCH (09:00)
[2021-08-02] MEDS ORDERED: BICALUTAMIDE 50 MG TAB PO SCH (09:00)
--- NOTE | 2021-08-02 09:15 | Electrocardiogram Report ---
Test Reason : Blood Pressure : / mmHG Vent. Rate : 109 BPM Atrial Rate : 109 BPM P-R Int : 154 ms QRS Dur : 092 ms QT Int : 346 ms P-R-T Axes : 062 046 061 degrees QTc Int : 465 ms Sinus tachycardia Incomplete right bundle branch block Normal ECG No previous ECGs available Confirmed by Rizwan Mary ([id number]) on 08/02/2021 9:14:55 AM Referred By: [facility] Confirmed By:Rizwan Mary
--- NOTE | 2021-08-02 17:16 | Billing Data ---
Date of Service August 02, 2021 Coding Level of Care Code 70573 OBS Care - Discharge
[2021-08-04] MEDS ORDERED: ESTRADIOL 0.1 MG/HR TDSY TD SCH (09:00)
== END 2021-08-02 15:27 | disposition home or self-care (01) ==
LOC: ED 16:24 → 2S 16:24 → SUATTDRO 20:00 → 2S 22:40